=== PATIENT | female | born 1960 | race Caucasian/White ===

== ENCOUNTER 2020-09-25 21:57 | Emergency (ER) | payer BC, OTHER ==
[~2020-09-25] VITALS: Ht 165.1 cm; Wt 74.8 kg
[2020-09-25 22:23] VITALS: BP_SYST 148
== END 2020-09-25 23:00 | disposition left against medical advice (07) ==
LOC: SED 21:57
DX: F41.9 Anxiety disorder, unspecified (principal); Z53.21 Procedure and treatment not carried out due to patient leaving prior to being seen by health care provider